=== PATIENT | male | born 1950 | race African-American/Black ===

== ENCOUNTER 2024-02-22 22:25 | Inpatient (IN) | payer MEDICARE, OTHER ==
[2024-02-22 23:11] LABS: Absolute Eosinophils 0.1 K/uL (0-0.5); Absolute Lymphocytes (CBC) 0.8 K/uL (0.7-4.9); Absolute Monocytes 2.1 K/uL (0.1-1.3); Absolute Neutrophil 4.3 K/uL (1.8-8.0); Basophils % 0.2 % (0-1.3); Eosinophils % 0.9 % (0-4.4); Hematocrit 37.8 % (39.6-49.0); Hemoglobin 12.6 g/dL (13.6-17.9); Lymphocytes % 10.4 % (15.3-44.8); MCH 30.5 pg (27.0-35.0); MCHC 33.5 g/dL (32.0-36.0); MPV 7.5 fL (7.6-11.3); Neutrophils % 59.5 % (41.7-73.7); Nucleated Red Blood Cells % 0.2 % (0-0); Platelets 346 thou/uL (152-406); RBC Red Blood Cell Count 4.15 M/uL (4.33-5.43); Red Cell Distribution Width 13.7 % (12.1-15.2)
[2024-02-22] MEDS ORDERED: VANCOMYCIN 1 GM/VIAL ONE (23:11)
[2024-02-22] MEDS ORDERED: ONDANSETRON 4 MG/2 ML VIAL ONE (23:11)
[2024-02-22] MEDS ORDERED: NA CHLORIDE 0.9% 100 ML ONE (23:12)
[2024-02-22] MEDS ORDERED: ACETAMINOPHEN 500 MG TAB ONE (23:12)
[2024-02-22] MEDS ORDERED: NA CHLORIDE 0.9% 500 ML ONE (23:12)
[2024-02-22] MEDS ORDERED: NA CHLORIDE 0.9% 2,000 ML ONE (23:12)
[2024-02-22] MEDS ORDERED: PIPERACIL/TAZO 3.375 GM VIAL IV ONE (23:13)
[2024-02-22 23:14] LABS: PTT, Activated Partial Thromb 31.1 SECONDS (24.3-36.9); Protime INR 1.47
[2024-02-22 23:19] LABS: Arterial Blood Carboxyhemoglob 0.7 % (0-1.5); Blood Gas Oxyhemoglobin 94.5 % (94-97); Blood Gas THB 13.9 g/dl (12-18); Blood O2 Saturation 96.8 % (92-98.5)
[2024-02-22 23:27] LABS: SARS-CoV-2 Antigen CONTROL BLUE LINE VIS/BG OK; SARS-CoV-2 Antigen Rapid Res Negative (Negative)
[2024-02-22 23:29] LABS: Albumin 2.7 g/dL (3.4-5.0); Albumin/Globulin Ratio 0.6 (1.1-1.8); Anion Gap 8.2 mEq/L (5.0-15.0); Bilirubin Total 0.5 mg/dL (0.2-1.0); Globulin 4.7 g/dL (2.3-3.5); Protein, Total 7.4 g/dL (6.4-8.2)
[2024-02-22 23:30] LABS: Potassium 4.2 mEq/L (3.5-5.1)
[2024-02-22 23:56] LABS: Barbiturates NEGATIVE (NEGATIVE); Benzodiazepines NEGATIVE (NEGATIVE); Cocaine NEGATIVE (NEGATIVE); METHAMPHETAM NEGATIVE (NEGATIVE); Methadone NEGATIVE (NEGATIVE); Opiates NEGATIVE (NEGATIVE); Phencyclidine NEGATIVE (NEGATIVE); THC Cannibis NEGATIVE (NEGATIVE)
[2024-02-22 23:58] LABS: Specific Gravity 1.024 (1.005-1.030); Sqamous Epithelial <5 /HPF (None Seen); Urine Bacteria >50 /HPF (<20); Urine Bilirubin NEGATIVE (Negative); Urine Blood 1+ (Negative); Urine Clarity Extremely Turbid (Clear); Urine Color Yellow (Yellow); Urine Culture Reflex Order REFLEXED; Urine Glucose NEGATIVE (Negative); Urine Ketones NEGATIVE (Negative); Urine Microscopic Reflex YN ORDER UMIC; Urine Mucus 4+ /HPF (None Seen); Urine Nitrite 1+ (Negative); Urine Protein 2+ (Negative); Urine RBC None Seen /HPF (None Seen); Urine Urobilinogen 1+ (Normal); Urine WBC >50 /HPF (<5); Urine pH 5.5 (5.0-7.0)
[2024-02-23 00:10] LABS: Band Neutrophils 6 % (0-1); Differential Total Cells Count 100; Eosinophils 1 % (0-3); Lymphocytes 5 % (15-42); Monocytes 15 % (0-10); Reactive Lymphocytes 7 %; Segmented Neutrophils 65 % (40-80)
[2024-02-23 00:11] LABS: Blood Morphology Comment NOT SEEN (NOT SEEN); Platelet Estimate ADEQ
--- NOTE | 2024-02-23 03:10 | P.HP ---
Certification for Inpatient Patient admitted to: Inpatient With expected LOS: <2 Midnights Practitioner: I am a practitioner with admitting privileges, knowledge of patient current condition, hospital course, and medical plan of care. Services: Services provided to patient in accordance with Admission requirements found in Title 42 Section 412.3 of the Code of Federal Regulations Patient History Date of Service: 02/23/24 Reason for admission: Pyelonephritis, acute renal failure History of Present Illness: 73 yrs old Black Male past medical history of dementia, hypertension, benign prostatic hypertrophy, presents to ER via Unassigned with complaints of fever and AMS . Son was at bedside during ER evaluation with the ER staff. Son reported confusion at home today associated with fever and generalized weakness. Temperature measured by EMS 101.5. Patient on arrival not able to provide any significant ROS or HPI. It was reported by the family the patient has been feeling unwell for the last 2 days with reported progressive confusion. ER course or IV fluids, IV antibiotics, with nephrology to consult. ER course UA positive leukoesterase greater than 250, 1+ hematuria, 1+ bacteria, microcytic anemia 12.6 37.8,BUN 27 creatinine 2.8 estimated GFR 28 glucose 122,plan to admit admitted to inpatient sepsis without shock, acute renal failure, marj lonephritis, metabolic encephalopathy, elevated CO2 with nephrology to consult. Allergies No Known Allergies Allergy (Unverified 10/17/17 04:18) - Past Medical/Surgical History Diabetic: No -: BPH -: Hypertension -: Renal carcinoma -: Dementia -: Nephrectomy - Social History Smoking Status: Smoker current status UNK Alcohol use: No CD- Drugs: No Caffeine use: No Place of Residence: Home Review of Systems Per HPI Physical Examination - Physical Exam General: Alert, In no apparent distress, Oriented x2, Confused HEENT: Atraumatic, Normocephalic Neck: Supple, 2+ carotid pulse no bruit Respiratory: Clear to auscultation bilaterally, Normal air movement Cardiovascular: No edema, Normal pulses Capillary refill: <2 Seconds Gastrointestinal: Normal bowel sounds, Soft and benign Musculoskeletal: No clubbing, No swelling Integumentary: No rashes, No breakdown Neurological: Normal tone, Cranial nerves 3-12 intact, Normal affect, Dementia Urinary: Other (Foul smelling urine) - Studies Laboratory Data (last 24 hrs) 02/22/24 02/22/24 02/22/24 22:48 22:48 22:48 WBC 7.30 Hgb 12.6 L Hct 37.8 L Plt Count 346 PT 16.0 H INR 1.47 APTT 31.1 Sodium 137 Potassium 4.2 BUN 27 H Creatinine 2.38 H Glucose 122 H Total Bilirubin 0.5 AST 22 ALT 30 Alkaline Phosphatase 37 L Microbiology Data (last 24 hrs): 02/22/24 22:50 Nasopharnyx Influenza Type A Antigen Screen - Final 02/22/24 22:50 Nasopharnyx Influenza Type B Antigen Screen - Final Assessment and Plan - Plan Assessment plan Acute pyelonephritis Sepsis without shock, IV fluids, IV antibiotics, Urine culture, blood cultures, CT of the abdomen pelvis bladder wall thickening may be due to cystitis, relatively expiratory lung volumes favoring segmental atelectasis, no focal consolidations, prostatomegaly, Acute renal failure History of right nephrectomy Nephrology consult, Trend kidney function, avoid nephrotoxic medication Dementia Essential hypertension BPH resume appropriate home meds Fall precaution Full code DVT heparin Diet renal Disposition per hospital course - Advance Directives Does patient have a Living Will: No Does patient have a Durable POA for Healthcare: No Time Spent Managing Pts Care (In Minutes): 55
[2024-02-23] MEDS ORDERED: ONDANSETRON 4 MG/2 ML VIAL IV PRN (03:15)
--- NOTE | 2024-02-23 03:41 | ER ---
Nurse's Notes [facility] Name: Joselo Loredo Age: 73 yrs Sex: Male : 1950 Arrival Date: 02/22/2024 Time: 22:25 Bed 4 Private MD: Diagnosis: Pyelonephritis acute;Acute renal failure, acute delirium, acute pyelonephritis;Other specified sepsis Presentation: 02/21 22:44 Chief complaint: EMS states: Family found him altered, smelling of urine. vc1 22:45 Coronavirus screen: Client denies travel out of the [place] in the last 14 days. fever, vc1 Client presents with at least one sign or symptom that may indicate coronavirus-19. Ebola Screen: Patient negative for fever greater than or equal to 101.5 degrees Fahrenheit, and additional compatible Ebola Virus Disease symptoms Patient denies exposure to infectious person. Patient denies travel to an Ebola-affected area in the 21 days before illness onset. No symptoms or risks identified at this time. Initial Sepsis Screen: Does the patient meet any 2 criteria? RR > 20 per min. Altered Mental Status. HR > 90 bpm. Yes Does the patient have a suspected source of infection? No. Patient's initial sepsis screen is negative. Risk Assessment: Do you want to hurt yourself or someone else? Patient reports no desire to harm self or others. Onset of symptoms was February 22, 2024. 22:45 Method Of Arrival: EMS: [facility] vc1 22:45 Acuity: RANDA 3 vc1 22:53 Care prior to arrival: Medication(s) given: normal Saline 300 cc IV initiated. in the vc1 left antecubital area, 16G Oxygen administered. via nasal cannula. Activity prior to arrival: None. Mechanism of Injury: No Mechanism of Injury. Transition of care: patient was not received from another setting of care. Triage Assessment: 22:50 General: Appears in no apparent distress. comfortable, obese, unkempt, Behavior is vc1 cooperative, flat. General: Smells of urine. Pain: Denies pain. EENT: No deficits noted. No signs and/or symptoms were reported regarding the EENT system. Neuro: Level of Consciousness is awake, obeys commands, lethargic, Oriented to person, place. Cardiovascular: Heart tones S1 S2 Capillary refill < 3 seconds Rhythm is sinus rhythm. Respiratory: Airway is patent Trachea midline Respiratory effort is even, unlabored, Respiratory pattern is regular, Breath sounds are clear bilaterally. Denies cough, shortness of breath. GI: Abdomen is round non-distended, Bowel sounds present X 4 quads. Abd is soft and non tender X 4 quads. : No deficits noted. No signs and/or symptoms were reported regarding the genitourinary system. Derm: Skin is intact, Skin is dry, Skin is normal, Skin temperature is hot. Musculoskeletal: No deficits noted. No signs and/or symptoms reported regarding the musculoskeletal system. Historical: - Allergies: 22:47 No Known Allergies; vc1 - Home Meds: 22:47 Flomax Oral [Active]; donepezil oral [Active]; memantine oral [Active]; losartan oral vc1 [Active]; amlodipine oral [Active]; finasteride oral [Active]; solifenacin oral [Active]; - PMHx: 22:47 Hypertension; Early onset Dementia (Hypertension); Swollen Prostate (Hypertension); vc1 - PSHx: 22:47 None; vc1 - Immunization history:: Client reports having NOT received the Covid vaccine. Flu vaccine is not up to date. - Infectious Disease History:: Denies. - Family history:: not pertinent. - Social history:: Smoking status: Patient denies any tobacco usage or history of. Screenin:[address] [facility] ED Fall Risk Assessment (Adult) History of falling in the last 3 months, vc1 including since admission No falls in past 3 months (0 pts) Confusion or Disorientation Yes (5 pts) Intoxicated or Sedated No (0 pts) Impaired Gait No (0 pts) Mobility Assist Device Used No (0 pt) Altered Elimination Yes (1 pt) Score/Fall Risk Level 3 or more points = High Risk Oriented to surroundings, Maintained a safe environment, Educated pt \T\ family on fall prevention, incl call for assistance when getting out of bed. Abuse screen: Denies threats or abuse. Nutritional screening: No deficits noted. Tuberculosis screening: No symptoms or risk factors identified. Assessment: 02/22 01:18 Reassessment: Patient appears in no apparent distress at this time. Patient and/or bm8 family updated on plan of care and expected duration. Pain level reassessed. Patient is alert, oriented x 3, equal unlabored respirations, skin warm/dry/pink. Patient denies pain at this time. Patient states feeling better. Patient states symptoms have improved. Neuro: No deficits noted. Level of Consciousness is awake, alert, obeys commands, Oriented to person, place, time, situation, [employer] are equal bilaterally Moves all extremities. Full function Speech is normal, Facial symmetry appears normal, Denies weakness numbness headache. Cardiovascular: Denies chest pain, lightheadedness, shortness of breath, Heart tones S1 S2 present Capillary refill < 3 seconds Patient's skin is warm and dry. Rhythm is sinus rhythm. Respiratory: No deficits noted. Airway is patent Trachea midline Respiratory effort is even, unlabored, Respiratory pattern is regular, symmetrical, Breath sounds are clear bilaterally. the patient has mild shortness of breath. GI: No deficits noted. No signs and/or symptoms were reported involving the gastrointestinal system. : No deficits noted. No signs and/or symptoms were reported regarding the genitourinary system. EENT: No deficits noted. No signs and/or symptoms were reported regarding the EENT system. Derm: No deficits noted. No signs and/or symptoms reported regarding the dermatologic system. Musculoskeletal: No deficits noted. No signs and/or symptoms reported regarding the musculoskeletal system. 04:53 Reassessment: Patient appears in no apparent distress at this time. No changes from bm8 previously documented assessment. Patient and/or family updated on plan of care and expected duration. Pain level reassessed. Patient is alert, oriented x 3, equal unlabored respirations, skin warm/dry/pink. Patient denies pain at this time. Patient states feeling better. Patient states symptoms have improved. Vital Signs: 02/21 22:45 BP 151 / 96; Pulse 98; Resp 22; Temp 100.6(A); Pulse Ox 93% on R/A; Weight 107.05 kg; vc1 Height 5 ft. 10 in. ; Pain 0/10; 02/22 01:18 BP 146 / 83; Pulse 84; Resp 19; Temp 98.7; Pulse Ox 93% on 2 lpm NC; Pain 0/10; bm8 04:53 BP 158 / 89; Pulse 88; Resp 17; Temp 99; Pulse Ox 99% on 2 lpm NC; Pain 0/10; bm8 02/21 22:45 Body Mass Index 33.86 (107.05 kg, 177.8 cm) vc1 02/21 22:45 Pain Scale: Adult vc1 02/22 01:18 Pain Scale: Adult bm8 04:53 Pain Scale: Adult bm8 García Coma Score: 02/21 22:36 Eye Response: spontaneous(4). Motor Response: obeys commands(6). Verbal Response: sp4 confused(4). Total: 14. 02/22 01:18 Eye Response: spontaneous(4). Motor Response: obeys commands(6). Verbal Response: bm8 oriented(5). Total: 15. 04:53 Eye Response: spontaneous(4). Motor Response: obeys commands(6). Verbal Response: bm8 oriented(5). Total: 15. ED Course: 02/21 22:29 Patient arrived in ED. rv1 22:31 Keny Infante MD is Attending Physician. sp4 22:45 Inserted saline lock: 20 gauge in right upper arm, using aseptic technique. Blood ty collected. 22:46 Triage completed. vc1 22:46 Roberto Carlos Masters, RN is Primary Nurse. bm8 22:47 Initial lab(s) drawn, by me, sent to lab. First set of blood cultures drawn by me. ty 22:50 Arm band placed on right wrist. vc1 22:52 Patient has correct armband on for positive identification. Placed in gown. Bed in low vc1 position. Call light in reach. Side rails up X2. monitoring manager on. Pulse ox on. NIBP on. 22:54 Maintain EMS IV. Dressing intact. Good blood return noted. Site clean \T\ dry. Gauge \T\ vc 1 site: 16G LAC. 23:01 Chest Single View XRAY In Process Unspecified. EDMS 23:05 Second set of blood cultures drawn by me. ty 23:05 Mckeon cath inserted, using sterile technique, 18 Fr., by me, balloon inflated, to bm8 gravity drainage, urine specimen collected. 02/22 00:00 Urine collected: Mckeon catheter specimen, clear, Amount Returned: 100mL. ty 00:33 CT Head Brain wo Cont In Process Unspecified. EDMS 00:33 Chest Abd Pelvis Wo Con In Process Unspecified. EDMS 01:18 No provider procedures requiring assistance completed. bm8 03:40 Len Wiley MD is Hospitalizing Provider. sp4 04:53 Provided Education on: NEED FOR ADMIT. bm8 04:53 Patient admitted, IV remains in place. bm8 Administered Medications: 02/21 23:36 Drug: Acetaminophen PO 1000 mg PO once Route: PO; bm8 02/22 01:29 Follow up: Response: No adverse reaction bm8 02/21 23:36 Drug: NS 0.9% IV (30 ml/kg) 30 ml/kg IV at bolus once; Sepsis Protocol Route: IV; Rate: bm8 bolus; Site: right antecubital; 02/22 01:29 Follow up: Response: No adverse reaction; IV Status: Completed infusion; IV Intake: bm8 3000ml 02/21 23:36 Drug: vancoMYCIN IVPB 2 grams IVPB at calculated rate once Route: IVPB; Rate: bm8 calculated rate; Site: right antecubital; 02/22 04:55 Follow up: Response: No adverse reaction; IV Status: Completed infusion; IV Intake: bm8 500ml 02/21 23:36 Drug: Piperacillin-Tazobactam IVPB 3.375 grams IVPB once over 60 mins; (mix in NS 100 bm8 mL) Route: IVPB; Infused Over: 60 mins; Site: left antecubital; 02/22 04:55 Follow up: Response: No adverse reaction; IV Status: Completed infusion; IV Intake: bm8 100ml 02/21 23:36 Drug: Ondansetron IVP 4 mg IVP once; over 2 minutes Route: IVP; Site: left antecubital; bm8 02/22 00:38 Follow up: Response: No adverse reaction bm8 Medication: 02/21 22:52 VIS not applicable for this client. vc1 Intake: 02/22 01:29 IV: 3000ml; Total: 3000ml. bm8 04:55 IV: 100ml; Total: 3100ml. bm8 04:55 IV: 500ml; Total: 3600ml. bm8 Outcome: 03:41 Decision to Hospitalize by Provider. sp4 04:53 Admitted to ER Hold. Please see [facility] for further documentation. bm8 04:53 Condition: stable 04:53 Instructed on the need for admit, Demonstrated understanding of instructions, follow-up care, 16:28 Patient left the ED. iw Signatures: Dispatcher [employer] Connie Shannon, RN RN iw Kathy Linares RN RN vc1 Mike, Elizabeth rv1 Keny Infante MD MD sp4 Jaime Mondragon Brad RN RN bm8 Corrections: (The following items were deleted from the chart) 02/21 23:59 23:57 Inserted saline lock: 20 gauge in right upper arm, using aseptic technique. Blood ty collected. ty 02/22 01:29 01:18 Mckeon cath inserted, using sterile technique, 18 Fr., by nh, balloon inflated, to bm8 gravity drainage, urine specimen collected. bm8
--- NOTE | 2024-02-23 03:41 | EDPHYS ---
Physician Documentation [facility] Name: Joselo Loredo Age: 73 yrs Sex: Male : 1950 Arrival Date: 02/22/2024 Time: 22:25 Bed 4 Private MD: ED Physician Keny Infante HPI: 02/21 22:35 This 73 yrs old Black Male presents to ER via Unassigned with complaints of fever and sp4 AMS . 22:35 73-year-old male with history of BPH and hypertension presents with EMS for worsening sp4 confusion at home today associated with fever and generalized weakness. Temperature measured by EMS 101.5. Patient on arrival not able to provide any significant ROS or HPI. It was reported by the family the patient has been feeling unwell throughout the day and became confused.. 02/22 01:29 Patient's family report he has not been feeling well for the past 2 days.. sp4 Historical: - Allergies: 02/21 22:47 No Known Allergies; vc1 - Home Meds: 22:47 Flomax Oral [Active]; donepezil oral [Active]; memantine oral [Active]; losartan oral vc1 [Active]; amlodipine oral [Active]; finasteride oral [Active]; solifenacin oral [Active]; - PMHx: 22:47 Hypertension; Early onset Dementia (Hypertension); Swollen Prostate (Hypertension); vc1 - PSHx: 22:47 None; vc1 - Immunization history:: Client reports having NOT received the Covid vaccine. Flu vaccine is not up to date. - Infectious Disease History:: Denies. - Family history:: not pertinent. - Social history:: Smoking status: Patient denies any tobacco usage or history of. ROS: 02/22 01:29 Constitutional: Negative for chills, and weight loss, positive for confusion fever and sp4 generalized weakness All other systems are negative, Exam: 02/21 22:36 Constitutional: This is a well developed, well nourished patient who is awake, alert, sp4 and in no acute distress. Head/Face: Normocephalic, atraumatic. Eyes: Pupils equal round and reactive to light, extra-ocular motions intact. Lids and lashes normal. Conjunctiva and sclera are not injected. Cornea within normal limits. Periorbital areas with no swelling, redness, or edema. ENT: Nares patent. No nasal discharge, no septal abnormalities noted. Tympanic membranes are normal and external auditory canals are clear. Oropharynx with no redness, swelling, or masses, exudates, or evidence of obstruction, uvula midline. Mucous membranes moist. Neck: Trachea midline, no thyromegaly or masses palpated, and no cervical lymphadenopathy. Supple, full range of motion without nuchal rigidity, or vertebral point tenderness. Chest/axilla: Normal chest wall appearance and motion. Nontender with no deformity. No lesions are appreciated. Cardiovascular: Regular rate and rhythm with a normal S1 and S2. No gallops, murmurs, or rubs. Normal PMI, no JVD. No pulse deficits. Respiratory: Lungs have equal breath sounds bilaterally, clear to auscultation and percussion. No rales, rhonchi or wheezes noted. No increased work of breathing, no retractions or nasal flaring. Abdomen/GI: Soft, with normal bowel sounds. No distension or tympany. No guarding or rebound. No evidence of tenderness throughout. Back: No spinal tenderness. No costovertebral tenderness. Male : Normal genitalia with no discharge or lesions. Skin: Warm, dry with normal turgor. Normal color with no rashes, no lesions, and no evidence of cellulitis. MS/ Extremity: Pulses equal, no cyanosis. Neurovascular intact. Full, normal range of motion. Neuro: Awake and alert, GCS 15, oriented to person, only Cranial nerves II-XII grossly intact. Motor strength 5/5 in all extremities. Sensory grossly intact. ECG was reviewed by the Attending Physician. EKG at 2231 normal sinus rhythm normal EKG rate 96 Vital Signs: 22:45 BP 151 / 96; Pulse 98; Resp 22; Temp 100.6(A); Pulse Ox 93% on R/A; Weight 107.05 kg; vc1 Height 5 ft. 10 in. ; Pain 0/10; 02/22 01:18 BP 146 / 83; Pulse 84; Resp 19; Temp 98.7; Pulse Ox 93% on 2 lpm NC; Pain 0/10; bm8 04:53 BP 158 / 89; Pulse 88; Resp 17; Temp 99; Pulse Ox 99% on 2 lpm NC; Pain 0/10; bm8 02/21 22:45 Body Mass Index 33.86 (107.05 kg, 177.8 cm) vc1 02/21 22:45 Pain Scale: Adult vc1 02/22 01:18 Pain Scale: Adult bm8 04:53 Pain Scale: Adult bm8 García Coma Score: 02/21 22:36 Eye Response: spontaneous(4). Motor Response: obeys commands(6). Verbal Response: sp4 confused(4). Total: 14. 02/22 01:18 Eye Response: spontaneous(4). Motor Response: obeys commands(6). Verbal Response: bm8 oriented(5). Total: 15. 04:53 Eye Response: spontaneous(4). Motor Response: obeys commands(6). Verbal Response: bm8 oriented(5). Total: 15. MDM: 02/21 22:35 Patient medically screened. sp4 02/22 01:22 ED course: PROCEDURE: XR Chest, 1 View CLINICAL INDICATION: The patient is 73 years old sp4 and is Male; CHEST PAIN Bed Name: 4 TECHNIQUE: Frontal view of the chest. COMPARISON: None FINDINGS: LUNGS: Right hemidiaphragm elevation with medial bibasilar airspace opacities, favoring atelectasis. No other focal consolidation. PLEURAL SPACE: Blunting of the left costophrenic angle, suggesting pleural thickening versus effusion. No appreciable pneumothorax. MEDIASTINUM: Prominence of the cardiomediastinal silhouette, likely exaggerated secondary to portable technique, lordotic positioning, and patient body habitus. BONES/JOINTS: Degenerative changes of bilateral shoulders. VASCULATURE: Calcified atherosclerosis of the thoracic aorta. IMPRESSION: 1. Right hemidiaphragm elevation with medial bibasilar airspace opacities, favoring atelectasis. No other focal consolidation. 2. Blunting of the left costophrenic angle, suggesting pleural thickening versus effusion. Electronically signed by: Suresh Sebastian MD 02/22/2024 11:38 PM . 01:30 Differential Diagnosis altered mental status, sepsis, flu, Pyelonephritis . Data sp4 reviewed: vital signs, nurses notes, EMS record, old medical records, lab test result(s), EKG, radiologic studies, CT scan, plain films. Consideration of Admission/Observation Patient was admitted/placed on observation. Escalation of care including admission/observation considered. Management of patient was discussed with the following: Hospitalist: Admission team. . ED course: CT - FINDINGS: No acute intracranial hemorrhage identified. No mass, mass effect, shift of the midline, abnormal extra-axial fluid collection or CT evidence of acute ischemic change identified. The ventricular system and sulcal spaces are mildly enlarged compatible with mild cerebral atrophy. Confluent areas of hypodensity throughout the supratentorial white matter are nonspecific and may be related to chronic small vessel ischemic change. Focal encephalomalacia in the right basal ganglia compatible with remote lacunar type infarction. The visualized paranasal sinuses and the mastoids are clear. No skull fracture identified. Visualized orbits and globes are unremarkable. Atherosclerotic calcification of the intracranial internal carotid arteries. IMPRESSION: 1. No acute intracranial abnormality by CT criteria. . 04:00 ED course: CT - Abdomen - pelvis - IMPRESSION: 1. Bladder wall thickening which may be sp4 due to the decompressed state of the bladder or due to cystitis. Indwelling Mckeon catheter and bulb. 2. Relatively expiratory lung volumes bilaterally with bandlike right greater than left basilar predominant consolidations favoring subsegmental atelectasis. No additional focal consolidation. 3. Otherwise, no acute abnormality of the chest. No other acute findings in the abdomen or pelvis, allowing for lack of intravenous contrast. 4. Prostamegaly. Correlation with PSA levels recommended. 5. Additional nonacute findings as above. Electronically signed by: Suresh Sebastian MD 02/23/2024 02:53 AM CDT RP. 02/21 22:32 Order name: Blood Culture Adult (2) 02/21 22:32 Order name: CBC with Diff; Complete Time: :02/21 22:32 Order name: CMP; Complete Time: :02/21 22:32 Order name: Lactate w/ 2H reflex if indic.; Complete Time: :02/21 22:32 Order name: Protime (+inr); Complete Time: :02/21 22:32 Order name: Ptt, Activated; Complete Time: :02/21 22:32 Order name: Urinalysis w/ reflexes; Complete Time: :02/21 22:32 Order name: ABG; Complete Time: :02/21 22:32 Order name: Alcohol Level; Complete Time: 01:21 sp4 02/21 22:33 Order name: SARS RAPID; Complete Time: 01:21 sp4 02/21 22:33 Order name: Influenza Screen (a \T\ B); Complete Time: 01:21 sp4 02/21 22:33 Order name: Urine Drug Screen; Complete Time: 01:21 sp4 02/21 23:16 Order name: Manual Differential; Complete Time: 01:21 EDMS 02/22 00:01 Order name: Urine Culture EDMS 02/22 03:19 Order name: Urinalysis w/ reflexes EDMS 02/22 03:19 Order name: CBC with Automated Diff EDMS 02/22 03:19 Order name: CBC with Automated Diff; Complete Time: 06:41 EDMS 02/22 03:19 Order name: CBC with Automated Diff EDMS 02/22 03:19 Order name: Comprehensive Metabolic Panel EDMS 02/22 03:19 Order name: Comprehensive Metabolic Panel; Complete Time: 06:41 EDMS 02/22 03:19 Order name: Comprehensive Metabolic Panel EDMS 02/22 03:19 Order name: Magnesium EDMS 02/22 03:19 Order name: Magnesium; Complete Time: 06:41 EDMS 02/22 03:19 Order name: Magnesium EDMS 02/22 03:19 Order name: Phosphorus EDMS 02/22 03:19 Order name: Phosphorus; Complete Time: 06:41 EDMS 02/22 03:19 Order name: Phosphorus EDMS 02/21 22:32 Order name: Chest Single View XRAY sp4 02/21 22:36 Order name: CT Head Brain wo Cont sp4 02/22 00:33 Order name: Chest Abd Pelvis Wo Con EDMS 02/21 22:32 Order name: EKG; Complete Time: 22:32 sp4 02/21 22:32 Order name: Accucheck; Complete Time: 23:37 sp4 02/21 22:32 Order name: Cardiac monitoring; Complete Time: 23:37 sp4 02/21 22:32 Order name: Cath; Complete Time: 23:37 sp4 02/21 22:32 Order name: EKG - Nurse/Tech; Complete Time: 23:00 sp4 02/21 22:32 Order name: IV Saline Lock - Large Bore; Complete Time: 23:00 sp4 05/21 22:32 Order name: Labs collected and sent; Complete Time: 23:00 sp4 02/21 22:32 Order name: O2 Per Protocol; Complete Time: 23:00 sp4 02/21 22: Order name: O2 Sat Monitoring; Complete Time: 23:00 sp4 02/21 22:32 Order name: Vital Signs; Complete Time: 23:00 sp4 EC02/21 22:36 Rate is 96 beats/min. Rhythm is regular, Normal Sinus Rhythm. QRS Copen is Normal. [place] sp4 interval is normal. QRS interval is normal. QT interval is normal. No Q waves. T waves are Normal. No ST changes noted. Clinical impression: Normal ECG. Interpreted by me. Reviewed by me. Administered Medications: 23:36 Drug: Acetaminophen PO 1000 mg PO once Route: PO; 8 02/22 01:29 Follow up: Response: No adverse reaction [facility] 02/21 23:36 Drug: NS 0.9% IV (30 ml/kg) 30 ml/kg IV at bolus once; Sepsis Protocol Route: IV; Rate: bm8 bolus; Site: right antecubital; 02/22 01:29 Follow up: Response: No adverse reaction; IV Status: Completed infusion; IV Intake: bm8 3000ml 02/21 23:36 Drug: vancoMYCIN IVPB 2 grams IVPB at calculated rate once Route: IVPB; Rate: bm8 calculated rate; Site: right antecubital; 02/22 04:55 Follow up: Response: No adverse reaction; IV Status: Completed infusion; IV Intake: bm8 500ml 02/21 23:36 Drug: Piperacillin-Tazobactam IVPB 3.375 grams IVPB once over 60 mins; (mix in NS 100 bm8 mL) Route: IVPB; Infused Over: 60 mins; Site: left antecubital; 02/22 04:55 Follow up: Response: No adverse reaction; IV Status: Completed infusion; IV Intake: bm8 100ml 02/21 23:36 Drug: Ondansetron IVP 4 mg IVP once; over 2 minutes Route: IVP; Site: left antecubital; bm8 02/22 00:38 Follow up: Response: No adverse reaction bm8 Disposition Summary: 02/23/24 03:41 Hospitalization Ordered Notes: Hospitalization Status: Inpatient Admission sp4 Provider: Len Wiley sp4 Condition: Stable sp4 Problem: new sp4 Symptoms: have improved sp4 Bed/Room Type: Standard sp4 Location: Telemetry/MedSurg (Inpatient)(02/23/24 15:42) [facility] Room Assignment: 216(02/23/24 15:42) romario Diagnosis - Pyelonephritis acute sp4 - Acute renal failure, acute delirium, acute pyelonephritis sp4 - Other specified sepsis sp4 Forms: - Medication Reconciliation Form sp4 - SBAR form sp4 - Leadership Thank You Letter sp4 Signatures: Dispatcher [employer] EDMS Cricket Wiley MD MD rn Bhavesh Menard, RN RN ja1 Kathy Linares, RN RN vc1 Elizabeth Mckeon rv1 Keny Infante MD MD sp4 Roberto Carlos Masters, RN RN bm8 Corrections: (The following items were deleted from the chart) 02/21 22:32 22:32 ETHANOL+C.LAB.BRZ ordered. EDMS EDMS 22:33 22:33 URINE DRUG SCREEN+UC.LAB.BRZ ordered. EDMS EDMS 02/22 00:33 02/21 22:34 Chest Abdomen Pelvis W Con+CT.RAD.BRZ ordered. EDMS EDMS 02/22 03:49 03:41 Telemetry/MedSurg (Inpatient) sp4 rv1 03:49 03:41 sp4 rv1 15:42 03:49 [facility] ER HOLD rv1 ja1 15:42 03:49 ERHOLD- rv1 ja1
[2024-02-23 05:16] VITALS: BMI 33.7
[2024-02-23 05:29] LABS: Absolute Eosinophils 0.1 K/uL (0-0.5); Absolute Lymphocytes (CBC) 0.7 K/uL (0.7-4.9); Absolute Monocytes 0.7 K/uL (0.1-1.3); Absolute Neutrophil 4.5 K/uL (1.8-8.0); Basophils % 0.3 % (0-1.3); Eosinophils % 0.9 % (0-4.4); Hematocrit 38.5 % (39.6-49.0); Hemoglobin 12.8 g/dL (13.6-17.9); MCH 30.5 pg (27.0-35.0); MCHC 33.2 g/dL (32.0-36.0); MCV 91.8 fL (80-100); MPV 7.5 fL (7.6-11.3); Monocytes % 12.3 % (3.3-12.3); Neutrophils % 75.5 % (41.7-73.7); Nucleated Red Blood Cells % 0.1 % (0-0); Platelets 331 thou/uL (152-406); RBC Red Blood Cell Count 4.19 M/uL (4.33-5.43); Red Cell Distribution Width 13.9 % (12.1-15.2)
[2024-02-23 06:24] LABS: Potassium 4.2 mEq/L (3.5-5.1)
[2024-02-23 06:25] LABS: Albumin 2.5 g/dL (3.4-5.0); Albumin/Globulin Ratio 0.6 (1.1-1.8); Anion Gap 7.2 mEq/L (5.0-15.0); Bilirubin Total 0.6 mg/dL (0.2-1.0); Globulin 4.5 g/dL (2.3-3.5); Magnesium 2.4; Phosphorus 2.9 mg/dL (2.5-4.9)
[2024-02-23] MEDS: Ringers Lactate 1,000 ML IV SCH (07:00)
[2024-02-23] MEDS ORDERED: Ringers Lactate 1,000 ML IV ONE (07:48)
--- NOTE | 2024-02-23 08:28 | P.PN ---
Date of Service: 02/23/24 Subjective: patient seen this morning, feels slight improvement reports symptoms came on in last ~1-2 days had some difficulty urinating in last day minor placed in ED ROS: 10 point ROS as noted above, otherwise negative Physical Exam: GEN: Alert, orientedx3, NAD, slight confusion HEENT: Normal conjunctiva, sclera anicteric CV: Regular rate and rhythm, no edema Pulm: Nonlabored respirations on 2L NC, clear bilaterally ABD: Soft, nontender, nondistended Neuro: Normal speech, normal affect Minor in place vitals reviewed Problem List: Sepsis secondary to Acute pyelonephritis with acute delirium ZO hx of right nephrectomy Hypertension BPH Dementia Sepsis secondary to Acute pyelonephritis with acute delirium Reports fever, confusion, generalized weakness at home ~2 days prior to hospitalization. EMS noted 101.5 fever prior to arrival CT abdomen (02/21): bladder wall thickening may be due to cystitis. Indwelling minor catheter and bulb. subsegmental atelectasis, prostatomegaly, colonic diverticulosis urinalysis in ED with +LE, +WBC, +bacteria Continue empiric zosyn (02/22-) follow blood and urine cultures continue IV fluids PRN antiemetics ZO hx of right nephrectomy Nephrology consulted continue to monitor renal function Creatinine 2.38 -> 2.11 (02/22) continue IVF suspect prerenal, and possibly component of urinary retention Hypertension BPH Dementia confirm home meds, restart as appropriate VTE: lovenox Code: Full Dispo: Home, ~2 days Pending culture results / afebrile > 24 hours improved mentation
[2024-02-23] MEDS: PIPER TAZO 3.375 GM in NA CHLORIDE 0.9% 100 ML IV SCH (09:00)
[2024-02-23] MEDS ORDERED: NA CHLORIDE 0.9% 100 ML ONE (09:28)
[2024-02-23] MEDS ORDERED: PIPERACIL/TAZO 3.375 GM VIAL IV ONE (09:29)
[2024-02-23] MEDS: PNEUMOCOCCAL VACCINE 0.5 ML IMVAC ONE (10:00)
--- NOTE | 2024-02-23 12:21 | RAD REPORT ---
EXAM DESCRIPTION: RAD - Chest Single View - 02/22/2024 11:00 pm XR Chest, 1 View CLINICAL HISTORY: The patient is 73 years old and is Male; CHEST PAIN Bed Name: 4 TECHNIQUE: Frontal view of the chest. COMPARISON: None FINDINGS: LUNGS: Right hemidiaphragm elevation with medial bibasilar airspace opacities, favoring atelectasis. No other focal consolidation. PLEURAL SPACE: Blunting of the left costophrenic angle, suggesting pleural thickening versus effusi on. No appreciable pneumothorax. MEDIASTINUM: Prominence of the cardiomediastinal silhouette, likely exaggerated secondary to portab le technique, lordotic positioning, and patient body habitus. BONES/JOINTS: Degenerative changes of bilateral shoulders. VASCULATURE: Calcified atherosclerosis of the thoracic aorta. IMPRESSION: 1. Right hemidiaphragm elevation with medial bibasilar airspace opacities, favoring at electasis. No other focal consolidation. 2. Blunting of the left costophrenic angle, suggesting pleural thickening versus effusion. Electronically signed by: Suresh Sebastian MD 02/22/2024 11:38 PM CDT Due to temporary technical issues with the PACS/Fluency reporting system, reports are being signed by the in house radiologists without review as a courtesy to insure prompt reporting. The interpreting radiologist is fully responsible for the content of the report.
[2024-02-23] MEDS: carvediloL 12.5 MG TAB PO SCH (13:00)
[2024-02-23] MEDS: NA CHLORIDE 0.9% 1,000 ML IV SCH (13:00)
[2024-02-23] MEDS: AMLODIPINE 10 MG TAB PO SCH (13:00)
--- NOTE | 2024-02-23 13:48 | RAD REPORT ---
EXAM DESCRIPTION: CT - Head Brain Wo Cont - 02/23/2024 6:36 am CLINICAL HISTORY: CONFUSED COMPARISON: 06/08/2023 TECHNIQUE: Axial CT of the head obtained from the skull apex to the skull base without contrast. Thi s exam was performed according to our departmental dose-optimization program, which includes automate d exposure control, adjustment of the mA and/or kV according to patient size and/or use of iterative reconstruction technique. FINDINGS: No acute intracranial hemorrhage identified. No mass, mass effect, shift of the midline, a bnormal extra-axial fluid collection or CT evidence of acute ischemic change identified. The ventricu lar system and sulcal spaces are mildly enlarged compatible with mild cerebral atrophy. Confluent a reas of hypodensity throughout the supratentorial white matter are nonspecific and may be related to chronic small vessel ischemic change. Focal encephalomalacia in the right basal ganglia compatible wi th remote lacunar type infarction. The visualized paranasal sinuses and the mastoids are clear. No skull fracture identified. Visualiz ed orbits and globes are unremarkable. Atherosclerotic calcification of the intracranial internal car otid arteries. IMPRESSION: 1. No acute intracranial abnormality by CT criteria. Electronically signed by: Krystian Lake DO 02/23/2024 01:21 AM CDT RP [id number] Due to temporary technical issues with the PACS/Fluency reporting system, reports are being signed by the in house radiologists without review as a courtesy to insure prompt reporting. The interpreting radiologist is fully responsible for the content of the report.
[2024-02-23] MEDS ORDERED: NA CHLORIDE 0.9% 1,000 ML ONE (13:51)
[2024-02-23] MEDS ORDERED: AMLODIPINE 10 MG TAB ONE (13:51)
[2024-02-23] MEDS ORDERED: carvediloL 6.25 MG TAB ONE (13:51)
[2024-02-23] MEDS ORDERED: PNEUMOCOCCAL VACCINE 0.5 ML IMVAC ONE (13:51)
--- NOTE | 2024-02-23 14:04 | RAD REPORT ---
EXAM DESCRIPTION: CT - Chest Abd Pelvis Wo Con - 02/23/2024 6:35 am CLINICAL HISTORY: The patient is 73 years old and is Male; Fever and sepsis Bed Name: 4 TECHNIQUE: Axial computed tomography images of the chest, abdomen and pelvis without intravenous con trast. Sagittal and coronal reformatted images were created and reviewed. This CT exam was perfor med using one or more of the following dose reduction techniques: automated exposure control, adjus tment of the mA and/or kV according to patient size, and/or use of iterative reconstruction technique . COMPARISON: XR Chest 02/22/2024, CT Stone Protocol 10/16/2017 FINDINGS: CHEST: LUNGS: Relatively expiratory lung volumes bilaterally with bandlike right greater than left basilar predominant consolidations favoring subsegmental atelectasis. No additional focal consolidation. Left suprahilar calcified granuloma. No mass. PLEURAL SPACE: No appreciable pleural effusion or pneumothorax. HEART: Cardiomegaly. No significant coronary artery calcifications. No significant pericardial effusion. ABDOMEN: LIVER: Unremarkable GALLBLADDER AND BILE DUCTS: Unremarkable No calcified stones. No ductal dilation. PANCREAS: Unremarkable No ductal dilation. SPLEEN: Unremarkable No splenomegaly. ADRENALS: Unremarkable No mass. KIDNEYS AND URETERS: Right-sided nephrectomy. STOMACH AND BOWEL: Colonic diverticulosis without evidence of acute diverticulitis. No evidence of small or large bowel obstruction. PELVIS: APPENDIX: No findings to suggest acute appendicitis. BLADDER: Bladder wall thickening which may be due to the decompressed state of the bladder or due t o cystitis. Urinary bladder is decompressed around the indwelling Mckeon catheter and bulb. No stones. REPRODUCTIVE: The prostate gland is enlarged. CHEST, ABDOMEN and PELVIS: INTRAPERITONEAL SPACE: Unremarkable No significant fluid collection. No free air. BONES/JOINTS: Multilevel spondylosis. DISH changes of the inferior cervical spine. No acute fracture. No dislocation. SOFT TISSUES: Mild right-sided gynecomastia. VASCULATURE: Mild ectasia of the proximal aortic arch, measuring up to 4.2 cm, without overt aneury smal dilatation. LYMPH NODES: Unremarkable No enlarged lymph nodes. OTHER FINDINGS: Right hemidiaphragm elevation. IMPRESSION: 1. Bladder wall thickening which may be due to the decompressed state of the bladder o r due to cystitis. Indwelling Mckeon catheter and bulb. 2. Relatively expiratory lung volumes bilaterally with bandlike right greater than left basilar pre dominant consolidations favoring subsegmental atelectasis. No additional focal consolidation. 3. Otherwise, no acute abnormality of the chest. No other acute findings in the abdomen or pelvis, allowing for lack of intravenous contrast. 4. Prostamegaly. Correlation with PSA levels recommended. 5. Additional nonacute findings as above. Electronically signed by: Suresh Sebastian MD 02/23/2024 02:53 AM CDT RP Due to temporary technical issues with the PACS/Fluency reporting system, reports are being signed by the in house radiologists without review as a courtesy to insure prompt reporting. The interpreting radiologist is fully responsible for The content of the report.
--- NOTE | 2024-02-23 16:12 | CON ---
Date of Consultation: 02/23/2024 Reason For Consultation: Elevated BUN and creatinine, fluid management, UTI. History Of Present Illness: This is a pleasant 73-year-old gentleman, well known to me from the office with significant past medical history of: 1. Hypertension. 2. Renal cell CA, status post right radical nephrectomy at [facility] back in January 2018. 3. Hypertension since 2004. 4. Chronic kidney disease stage 3B secondary to renal mass loss secondary to right nephrectomy superimposed with JONAH secondary to nonsteroidal use with normal sized kidney on the left 12.2 cm. Baseline creatinine as seen in the office back in November is 2.1, with GFR of 32. The patient came to the hospital. For the last few days, the patient had weakness and difficulty ambulating. Upon arrival to the hospital, the patient found to have UTI, and elevation in BUN and creatinine. For that reason, we have been consulted. Creatinine was 2.8, GFR of 28. The patient denied taking any nonsteroidal. Workup showed pyelonephritis. The patient did not have any low blood pressure. The patient did not have any IV contrast. Past Medical History: Includes: 1. Hypertension. 2. Renal cell CA, status post right nephrectomy back in January 2018. 3. Chronic kidney disease stage 3B. 4. Hyperlipidemia. 5. Benign prostate hypertrophy. 6. Dementia. Past Surgical History: Include nephrectomy. Social History: Active smoker. Denied alcohol. Denied drugs abuse. Review of Systems: Unobtainable. The patient had dementia. Physical Examination: General: When I saw the patient, patient lying in bed, comfortable. Vital Signs: Blood pressure 167/94, pulse of 99, afebrile. Chest: Clear to auscultation. Heart: S1, S2. Regular. Abdomen: Soft, nontender. Extremity: No edema. Neuro: Alert. No focality. Laboratory Data: WBC 6, hemoglobin 12.8, sodium 137, potassium 4.2, bicarb 27, BUN 27, creatinine 2.3, calcium 9.4, GFR 28. Today's lab data; sodium 139, potassium 4.2, bicarb 26, BUN 23, creatinine 2.1, GFR of 32, calcium 8.7, phosphorus 2.9, albumin 2.5. Current Medications: The patient on, include: 1. LR. 2. Zosyn. Assessment And Plan: 1. Acute kidney injury secondary to toxic ATN, poor perfusion ATN secondary to pyelonephritis, wood heel back liner to his baseline, looked to me still on the dry side. I am going to change IV fluid to normal saline and we will follow up. 2. Hypertension, not controlled. With the presence of acute kidney injury, I am going to be avoiding any SHADE inhibitor or ARB. The patient as an outpatient on losartan, amlodipine. I am going to resume the amlodipine and carvedilol. 3. Chronic kidney disease, stable with acute kidney injury as above. Chronic kidney disease secondary to JONAH and renal mass loss. 4. Pyelonephritis. Continue current antibiotic dose appropriate. I am going to follow up culture. 5. Dehydration. Continue IV hydration. Time spent examining the patient [id number], reviewing data, lab and radiology, placing order, discussing the case with the patient, discussing the case with the preanalytics team lead including hospitalist and nursing staff with the dialysis nurse more than 75 minutes MANA Voice ID: [id number] Report ID: [id number]
[2024-02-24 03:50] LABS: Absolute Eosinophils 0.3 K/uL (0-0.5); Absolute Lymphocytes (CBC) 0.9 K/uL (0.7-4.9); Basophils % 0.5 % (0-1.3); Eosinophils % 3.7 % (0-4.4); Hematocrit 39.3 % (39.6-49.0); Hemoglobin 13.1 g/dL (13.6-17.9); Lymphocytes % 11.1 % (15.3-44.8); MCH 30.6 pg (27.0-35.0); MCHC 33.4 g/dL (32.0-36.0); MCV 91.5 fL (80-100); MPV 7.9 fL (7.6-11.3); Neutrophils % 60.9 % (41.7-73.7); Platelets 346 thou/uL (152-406); RBC Red Blood Cell Count 4.29 M/uL (4.33-5.43); Red Cell Distribution Width 13.7 % (12.1-15.2)
[2024-02-24 04:01] LABS: Albumin 2.5 g/dL (3.4-5.0); Albumin/Globulin Ratio 0.5 (1.1-1.8); Bilirubin Total 0.6 mg/dL (0.2-1.0); Globulin 4.6 g/dL (2.3-3.5); Magnesium 2.1 mg/dL (1.6-2.4); Protein, Total 7.1 g/dL (6.4-8.2)
[2024-02-24 04:09] LABS: Monocytes % 23.8 % (3.3-12.3)
--- NOTE | 2024-02-24 09:02 | P.PN ---
Date of Service: 02/24/24 Subjective: Feeling a little better today mentation slowly improving, more alert/awake. Answering questions more appropriately otherwise no new / worsening problems 100.6 temp yesterday afternoon, afebrile since then. 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 EMS noted 101.5 fever prior to arrival CT abdomen (02/21): bladder wall thickening may be due to cystitis. Indwelling minor catheter and bulb. subsegmental atelectasis, prostatomegaly, colonic diverticulosis urine cx (02/21): 4+ GNR blood cx (02/21): NGTD Continue empiric zosyn (02/22-) 100.6 temp yesterday, no leukocytosis follow blood and urine cultures IVF dc'd 02/22 PRN antiemetics ZO on CKD 3B renal cell CA s/p right nephrectomy (2017) Nephrology consulted ZO secondary to toxic ATN / dehydration continue to monitor renal function Creatinine 2.11 -> 1.77 (02/23) ~near baseline IVF dc'd 02/22 Hypertension BPH Dementia confirm home meds, restart as appropriate VTE: lovenox Code: Full Dispo: Home, ~1-2 days Pending culture results / afebrile > 24 hours improved mentation
[2024-02-24] MEDS: POTASS/SODIUM PHOSPHATE 1 PKT POWD.PACK PO SCH (09:45)
--- NOTE | 2024-02-24 11:47 | PN ---
Date of Progress Note: 02/24/2024 Subjective: The patient was admitted with UTI with acute kidney injury and dehydration. The patient was started on IV hydration. Kidney function has been improved. Physical Examination: Vital Signs: Blood pressure 155/91, pulse of 89, afebrile. Chest: Clear to auscultation. Heart: S1, S2. Regular. Abdomen: Soft, nontender. Extremities: No edema. Neurologic: Alert. No focality. Laboratory Data: Hemoglobin 13.1. Sodium 140, potassium 4, bicarb 25, BUN 19, creatinine 1.7, calcium 9.3. Current Medications: The patient is on include Zosyn, Zofran, K-Phos. Assessment And Plan: 1. Acute kidney injury secondary to prerenal, toxic acute tubular necrosis, recovered, back to baseline, looked to me normal volume. 2. Hypertension, controlled, optimal. Continue current treatment. 3. Urinary tract infection. Follow up culture. Continue current antibiotic. 4. Hyponatremia, depletional, recovered, resolved. Time spent examining the patient [id number], reviewing data, lab and radiology, placing order, discussing the case with the patient, discussing the case with the steam tender including hospitalist and nursing staff with the dialysis nurse more than 35 minutes MANA Voice ID: [id number] Report ID: [id number] ROSA
--- NOTE | 2024-02-24 15:07 | EKG ---
Test Date: 2024-02-22 Test Time: 22:31:24 Sweatband Flanger: SOSA MEASUREMENT RESULTS: Intervals: Rate: 96 ME: 162 QRSD: 88 QT: 354 QTc: 447 [place]: P: 20 ME: 162 QRS: 4 T: 52 INTERPRETIVE STATEMENTS: Normal sinus rhythm Normal ECG Compared to ECG 10/16/2017 15:34:02 Sinus tachycardia no longer present Electronically Signed On 02-24-24 15:00:55 CDT by Ben Albarado
[2024-02-24] MEDS: TAMSULOSIN 0.4 MG SR CAP PO SCH (21:11)
[2024-02-25 01:00] VITALS: O2SAT 96
[2024-02-25 03:53] LABS: Anion Gap 6.8 mEq/L (5.0-15.0); Magnesium 2.2 mg/dL (1.6-2.4); Potassium 3.8 mEq/L (3.5-5.1)
[2024-02-25] MEDS: HYDRALAZINE HCL 20 MG/ML VIAL IV PRN (05:59)
[2024-02-25 08:42] VITALS: BP 160/87; TEMP 97.6
--- NOTE | 2024-02-25 09:28 | P.DS ---
Admission Date: 02/23/24 Discharge Date: 02/25/24 Reason for Admission: Pyelonephritis, acute renal failure Consultations: Nephrology - Dr. Barraza Brief History of Present Illness: 73yo M, PMH: dementia, hypertension, benign prostatic hypertrophy, Patient presents to ER via Unassigned with complaints of fever and AMS . Son was at bedside during ER evaluation with the ER staff. Son reported confusion at home today associated with fever and generalized weakness. Temperature measured by EMS 101.5. Patient on arrival not able to provide any significant ROS or HPI. It was reported by the family the patient has been feeling unwell for the last 2 days with reported progressive confusion. ER course or IV fluids, IV antibiotics, with nephrology to consult. ER course UA positive leukoesterase greater than 250, 1+ hematuria, 1+ bacteria, microcytic anemia 12.6 37.8,BUN 27 creatinine 2.8 estimated GFR 28 glucose 122,plan to admit admitted to inpatient sepsis without shock, acute renal failure, pyelonephritis, metabolic encephalopathy, elevated CO2 with nephrology to consult. Hospital Course: Problem List: Sepsis secondary to Acute cystitis with acute delirium; delirium improved ZO on CKD 3B; ~baseline renal cell CA s/p right nephrectomy (2018) Hypertension BPH Dementia Physician discharge instructions: Patient presented with fever, generalized weakness, acute delirium. CT abdomen with findings most consistent with acute cystitis. Urine culture grew E. coli. Blood cultures without growth since admission. Patient was given empiric antibiotics, IV fluids, and had improvement of his symptoms. Patient received empiric zosyn while hospitalized and is to complete 1 week of oral levaquin on discharge for total of ~10 days of antibiotic senait tment. Patient was feeling better, afebrile > 24 hours, confusion improved, and was deemed stable for discharge home. Patient able to ambulate and urinate without issues on day of discharge. Patient noted to have an ZO on admission with serum creatinine of 2.38 and quickly improved with IV fluids and creatinine returned to patients baseline. Nephrology was consulted. ZO deemed secondary to toxic ATN / dehydration. Creatinine on discharge 1.68. Advised to remain adequately hydrated at home. Resume losartan day after discharge. Medications: Levaquin for 1 week Resume home medications Follow up: PCP 3-5 days Nephrology in ~2-4weeks Please call to schedule / confirm appointments Physical Exam: GEN: Alert, orientedx3, NAD HEENT: Normal conjunctiva, sclera anicteric CV: Regular rate and rhythm, no edema Pulm: Nonlabored respirations on room air, clear bilaterally ABD: Soft, nontender, nondistended Neuro: Normal speech, normal affect Vital Signs/Physical Exam: Temp Pulse Resp BP Pulse Ox 97.6 F 84 18 160/87 H 99 02/25/24 08:00 02/25/24 08:00 02/25/24 08:00 02/25/24 08:00 02/25/24 08:00 Laboratory Data at Discharge: WBC 8.30 thou/uL (4.3-10.9) 02/24/24 03:19 Hgb 13.1 g/dL (13.6-17.9) L 02/24/24 03:19 Hct 39.3 % (39.6-49.0) L 02/24/24 03:19 Plt Count 346 thou/uL (152-406) 02/24/24 03:19 PT 16.0 SECONDS (9.5-12.5) H 02/22/24 22:48 INR 1.47 02/22/24 22:48 APTT 31.1 SECONDS (24.3-36.9) 02/22/24 22:48 Sodium 139 mEq/L (136-145) 02/25/24 02:57 Potassium 3.8 mEq/L (3.5-5.1) 02/25/24 02:57 BUN 18 mg/dL (7-18) 02/25/24 02:57 Creatinine 1.68 mg/dL (0.70-1.30) H 02/25/24 02:57 Glucose 82 mg/dL (74-106) 02/25/24 02:57 Phosphorus 2.0 mg/dL (2.5-4.9) L 02/24/24 03:19 Magnesium 2.2 mg/dL (1.6-2.4) 02/25/24 02:57 Total Bilirubin 0.6 mg/dL (0.2-1.0) 02/24/24 03:19 AST 14 U/L (15-37) L 02/24/24 03:19 ALT 26 U/L (16-61) 02/24/24 03:19 Alkaline Phosphatase 37 U/L (45-117) L 02/24/24 03:19 Home Medications: Amlodipine [Norvasc*] 10 mg PO DAILY 02/24/24 Donepezil HCl [Aricept] 10 mg PO DAILY 02/24/24 Finasteride [Proscar*] 5 mg PO DAILY 02/24/24 Losartan Potassium [Cozaar] 25 mg PO DAILY 02/24/24 Memantine HCl 5 mg PO DAILY 02/24/24 Solifenacin Succinate 10 mg PO DAILY 02/24/24 Tamsulosin [Flomax*] 0.8 mg PO DAILY 02/24/24 levoFLOXacin [Levaquin] 750 mg PO DAILY 7 Days #7 tab 02/25/24 New Medications: levoFLOXacin [Levaquin] 750 mg PO DAILY 7 Days #7 tab Physician Discharge Instructions: Physician discharge instructions: Patient presented with fever, generalized weakness, active delirium. CT abdomen with findings most consistent with acute cystitis. Urine culture grew E. coli. Blood cultures without growth since admission. Patient was given empiric antibiotics, IV fluids, and had improvement of her symptoms. Patient received empiric zosyn while hospitalized and is to complete 1 week of oral levaquin on discharge for total of ~10 days of antibiotic treatment. Patient was feeling better, afebrile > 24 hours, confusion improved, and was deemed stable for discharge home. Patient able to ambulate and urinate without issues on day of discharge. Patient noted to have an ZO on admission with serum creatinine of 2.38 and quickly improved with IV fluids and creatinine returned to patients baseline. Nephrology was consulted. ZO deemed secondary to toxic ATN / dehydration. Creatinine on discharge 1.68. Advised to remain adequately hydrated at home. Medications: Levaquin for 1 week Resume home antihypertensives Follow up: PCP 3-5 days Please call to schedule / confirm appointments Followup: Brittny Tavarez NP [Primary Care Provider] - 1-2 Weeks Time spent managing pt's care (in minutes): 45
[2024-02-25] MEDS: POTASSIUM CL SA 10 MEQ TAB PO ONE (09:37)
[2024-02-25] MEDS: levoFLOXacin 750 MG TAB PO ONE (09:38)
[2024-02-25] MEDS: AMLODIPINE 10 MG TAB PO ONE (09:38)
[2024-02-25] MEDS: FINASTERIDE 5 MG TAB PO SCH (09:38)
== END 2024-02-25 12:03 | disposition home or self-care (01) | DRG 871 ==
LOC: ER 22:25 → OBSVTOIN 02-23 03:14 → ERHOLD 02-23 03:14 → 2ND 02-23 16:00
PROVIDERS: ADMIT Hospitalist; ATTEND Hospitalist
PROC: 4A033R1 Measurement of Arterial Saturation, Peripheral, Percutaneous Approach (ICD-10-PCS; principal; 2024-02-23)
PROC: 0T9B70Z Drainage of Bladder with Drainage Device, Via Natural or Artificial Opening (ICD-10-PCS; 2024-02-25)
DX: A41.51 Sepsis due to Escherichia coli [E. coli] (principal); G93.41 Metabolic encephalopathy; N17.0 Acute kidney failure with tubular necrosis; N10 Acute pyelonephritis; F05 Delirium due to known physiological condition; E87.1 Hypo-osmolality and hyponatremia; I12.9 Hypertensive chronic kidney disease with stage 1 through stage 4 chronic kidney disease, or unspecified chronic kidney disease; N18.32 Chronic kidney disease, stage 3b; D63.1 Anemia in chronic kidney disease; D50.9 Iron deficiency anemia, unspecified; E86.0 Dehydration; F03.90 Unspecified dementia, unspecified severity, without behavioral disturbance, psychotic disturbance, mood disturbance, and anxiety; N40.1 Benign prostatic hyperplasia with lower urinary tract symptoms; R33.8 Other retention of urine; R31.9 Hematuria, unspecified; Z23 Encounter for immunization; Z90.5 Acquired absence of kidney; Z11.52 Encounter for screening for COVID-19; Z28.310 Unvaccinated for COVID-19; Z85.528 Personal history of other malignant neoplasm of kidney
CPT/HCPCS: 36415; 36600; 51702; 70450; 71045; 71250; 74176; 80048; 80053; 80307; 81001; 82077; 82805; 83605; 83735; 84100; 85025; 85610; 85730; 87040; 87077; 87086; 87088; 87186; 87804; 87811; 90471; 90732; 93005; 97116; 97161; 97530; 99285; J0360; J2405; J2543; J7030; J7040; J7120

== ENCOUNTER 2024-11-08 16:40 | Observation (INO) | payer MEDICARE ==
[2024-11-08] MEDS ORDERED: MORPHINE 2 MG/ML SYR IV PRN (18:21)
[2024-11-08] MEDS ORDERED: ONDANSETRON 4 MG/2 ML VIAL IV PRN (18:21)
[2024-11-08] MEDS ORDERED: ACETAMINOPHEN 500 MG TAB PO PRN (18:21)
[2024-11-08 18:47] LABS: Absolute Lymphocytes (CBC) 0.7 K/uL (0.7-4.9); Absolute Monocytes 0.6 K/uL (0.1-1.3); Absolute Neutrophil 3.7 K/uL (1.8-8.0); Basophils % 0.5 % (0-1.3); Eosinophils % 0.9 % (0-4.4); Hematocrit 49.2 % (39.6-49.0); Hemoglobin 16.1 g/dL (13.6-17.9); Lymphocytes % 14.1 % (15.3-44.8); MCH 30.5 pg (27.0-35.0); MCHC 32.8 g/dL (32.0-36.0); MPV 8.6 fL (7.6-11.3); Monocytes % 11.3 % (3.3-12.3); Neutrophils % 73.2 % (41.7-73.7); Nucleated Red Blood Cells % 0.2 % (0-0); Platelets 238 thou/uL (152-406); RBC Red Blood Cell Count 5.29 M/uL (4.33-5.43); Red Cell Distribution Width 13.9 % (12.1-15.2)
[2024-11-08 18:53] LABS: D-Dimer 1.141 FEUug/mL (0-0.500); PT Prothrombin Time 12.9 SECONDS (9.4-12.5); PTT, Activated Partial Thromb 29.4 SECONDS (24.3-36.9); Protime INR 1.23
[2024-11-08 18:58] LABS: Albumin 3.9 g/dL (3.4-5.0); Albumin/Globulin Ratio 0.9 (1.1-1.8); Anion Gap 9.2 mEq/L (5.0-15.0); Bilirubin Total 1.9 mg/dL (0.2-1.0); Globulin 4.3 g/dL (2.3-3.5); Potassium 4.2 mEq/L (3.5-5.1); Protein, Total 8.2 g/dL (6.4-8.2); Troponin High Sensitivity 47.6 pg/mL (<58.9)
--- NOTE | 2024-11-08 21:42 | RAD REPORT ---
EXAMINATION: ONE VIEW CHEST XR CLINICAL INDICATION: Male, 73 years old.,Shortness of breath TECHNIQUE: Frontal chest projection is submitted. Examination is limited by patient positioning and t echnique. COMPARISON: 02/22/2024 FINDINGS: The lungs are well inflated and clear. Elevation of the right hemidiaphragm again seen. No pneumothor ax or sizable effusion. The heart is normal in size. Mediastinal contours are unremarkable. IMPRESSION: No acute intrathoracic abnormalities.
--- NOTE | 2024-11-09 03:28 | P.HP ---
Certification for Inpatient Patient admitted to: Observation With expected LOS: <2 Midnights Patient will require the following post-hospital care: None Practitioner: I am a practitioner with admitting privileges, knowledge of patient current condition, hospital course, and medical plan of care. 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 He has also had a 30 lb weight loss. As patient was short of breath with just talking to the fish processing supervisor they wanted to directly admit the patient to the hospital for further evaluation. I spoke to t he patient he really does not feel like he short of breath. He says he has no difficulty ambulating. He has lost weight but he does not have much of an appetite. His weight loss is concerning especially at his age. Will do a CT imaging just to evaluate for malignancy. At this time patient will be admitted for further workup. D-dimer is pending as well as echocardiogram. Chest x-ray does not reveal any abnormality. EKG with sinus rhythm. Patient will be admitted for Observation. Allergies No Known Allergies Allergy (Unverified 10/17/17 04:18) Home Medications: Amlodipine [Norvasc*] 10 mg PO DAILY 02/24/24 Donepezil HCl [Aricept] 10 mg PO DAILY 02/24/24 Losartan Potassium [Cozaar] 25 mg PO DAILY 02/24/24 Memantine HCl 5 mg PO DAILY 02/24/24 Oxybutynin Chloride [Oxybutynin Chloride ER] 5 mg PO DAILY 11/08/24 - Past Medical/Surgical History Has patient received pneumonia vaccine in the past: No Diabetic: No -: BPH -: Hypertension -: Renal carcinoma -: Dementia -: Nephrectomy - Family History Father Family History: Reviewed- Non-Contributory - Social History Smoking Status: Never smoker Alcohol use: No CD- Drugs: No Caffeine use: No Place of Residence: Home Review of Systems 10-point ROS is otherwise unremarkable Physical Examination - Vital Signs Temperature: 98.1 F Blood Pressure: 155/101 Pulse: 98 Respirations: 16 Pulse Ox (%): 99 - Physical Exam General: Alert, In no apparent distress, Oriented x3 HEENT: Atraumatic, PERRLA, Mucous membr. moist/pink, EOMI, Sclerae nonicteric Neck: Supple, 2+ carotid pulse no bruit, No LAD, Without JVD or thyroid abnormality Respiratory: Clear to auscultation bilaterally, Normal air movement Cardiovascular: Regular rate/rhythm, Normal S1 S2, No murmurs Gastrointestinal: Normal bowel sounds, Soft and benign, Non-distended, No tenderness Musculoskeletal: No clubbing, No swelling, No tenderness Integumentary: No rashes Neurological: Normal gait, Normal speech, Normal strength at 5/5 x4 extr, Normal tone, Sensation intact, Cranial nerves 3-12 intact, Normal affect Lymphatics: No axilla or inguinal lymphadenopathy - Studies Laboratory Data (last 24 hrs) 11/08/24 11/08/24 11/08/24 18:30 18:30 18:30 WBC 5.10 Hgb 16.1 Hct 49.2 H Plt Count 238 PT 12.9 H INR 1.23 APTT 29.4 Sodium 141 Potassium 4.2 BUN 22 H Creatinine 2.08 H Glucose 88 Total Bilirubin 1.9 H AST 15 ALT 22 Alkaline Phosphatase 50 Assessment & Plan - Problems (Diagnosis) (1) Shortness of breath Current Visit: Yes Status: Acute (2) Weight loss Current Visit: Yes Status: Acute (3) History of renal cell carcinoma Current Visit: Yes Status: Acute (4) H/O right nephrectomy Current Visit: Yes Status: Acute (5) HTN (hypertension) Current Visit: Yes Status: Acute (6) Elevated d-dimer Current Visit: Yes Status: Acute - Plan Plan: 1. shortness of breath; patient had a chest x-ray that was unremarkable. Patient denies feeling short of breath. D-dimer is elevated so will get a V/Q scan. Will also get an echocardiogram to evaluate. 2. Weight loss; patient lost about 30 lb in last 3 months. Will get a CT scan to evaluate possible etiology 3. chronic kidney disease stage III; patient with history of renal cell carcinoma with right-sided nephrectomy; patient with a GFR of 33. plan to continue to monitor renal function closely. B 4. Gi DVT prophylaxis Discharge Plan: Home Plan to discharge in: 24 Hours - Advance Directives Does patient have a Living Will: No Does patient have a Durable POA for Healthcare: No - Code Status/Comfort Care Code Status Assessed: Yes Code Status: Full Code Critical Care: No Time Spent Managing PTS Care (In Minutes): 40
[2024-11-09] MEDS: NA CHLORIDE 0.9% 1,000 ML IV SCH (04:29)
[2024-11-09] MEDS: METOPROLOL TAR 25 MG TAB PO SCH (04:33)
[2024-11-09] MEDS: OXYBUTYNIN ER 5 MG TAB PO SCH (08:16)
[2024-11-09] MEDS: LOSARTAN POTASSIUM 50 MG TABLET PO SCH (08:17)
[2024-11-09] MEDS: AMLODIPINE 10 MG TAB PO SCH (08:17)
[2024-11-09] MEDS: DONEPEZIL HCL 5 MG TAB PO SCH (08:17)
[2024-11-09] MEDS: MEMANTINE HCL 10 MG TABLET PO SCH (08:17)
--- NOTE | 2024-11-09 08:51 | RAD REPORT ---
EXAM: CT CHEST, ABDOMEN AND PELVIS WITHOUT CONTRAST CLINICAL INDICATION: Shortness of breath, abdominal pain, weight loss TECHNIQUE: CT chest, abdomen an d pelvis was performed, without IV contrast, as per department protocol. Axial, sagittal and coronal reconstructions were obtained. One or more of the following dose reduction techniques were us ed: Automated exposure control, adjustment of the mA and/or kV according to the patient size, and/or iterative reconstruction. Unless otherwise specified, incidental findings do not require dedic ated imaging follow-up. The lack of IV and oral contrast limits evaluation of the mediastinum, samuel, vessels, organs and roddy l. COMPARISON: June 2024 FINDINGS: Subsegmental atelectasis right lower lobe. The left lung appears clear No mediastinal or hilar lymphadenopathy seen. No pleural effusion. No pericardial effusion. Right nephrectomy. No left hydronephrosis. Small left renal cyst. No calculus. Bladder wall appears t hickened. The bladder is poorly distended. Mild prostatic enlargement. Liver, spleen, pancreas and adrenals grossly No evidence of diverticulitis. Normal appendix IMPRESSION: Apparent mild bladder wall thickening could be secondary to inflammation or incomplete distention
[2024-11-09 10:19] LABS: Absolute Eosinophils 0.1 K/uL (0-0.5); Absolute Lymphocytes (CBC) 0.8 K/uL (0.7-4.9); Absolute Monocytes 0.6 K/uL (0.1-1.3); Absolute Neutrophil 4.1 K/uL (1.8-8.0); Basophils % 0.4 % (0-1.3); Eosinophils % 1.1 % (0-4.4); Hematocrit 44.3 % (39.6-49.0); Hemoglobin 14.4 g/dL (13.6-17.9); Lymphocytes % 14.8 % (15.3-44.8); MCH 30.2 pg (27.0-35.0); MCHC 32.5 g/dL (32.0-36.0); MCV 92.9 fL (80-100); MPV 8.2 fL (7.6-11.3); Monocytes % 10.7 % (3.3-12.3); Nucleated Red Blood Cells % 0.1 % (0-0); Platelets 251 thou/uL (152-406); RBC Red Blood Cell Count 4.77 M/uL (4.33-5.43); Red Cell Distribution Width 14.2 % (12.1-15.2)
[2024-11-09 10:46] LABS: ALT/SGPT 17 U/L (16-61); Albumin 3.4 g/dL (3.4-5.0); Albumin/Globulin Ratio 0.9 (1.1-1.8); Alkaline Phosphatase 41 U/L (45-117); Anion Gap 3.4 mEq/L (5.0-15.0); BUN Blood Urea Nitrogen 24 mg/dL (7-18); Bicarbonate 36 mEq/L (21-32); Bilirubin Total 1.9 mg/dL (0.2-1.0); Globulin 3.7 g/dL (2.3-3.5); Glomerular Filtration Rate 39 ml/min (=/>90); Glucose Level 95 mg/dL (74-106); Magnesium 2.3 mg/dL (1.6-2.4); NT PRO-BNP 110 pg/mL (<125); Potassium 4.4 mEq/L (3.5-5.1); Protein, Total 7.1 g/dL (6.4-8.2); Sodium Level 142 mEq/L (136-145)
[2024-11-09 10:54] LABS: AST/SGOT < 10 U/L (15-37); C-Reactive Protein < 2.90 mg/L (<3.00)
--- NOTE | 2024-11-09 13:28 | ECHO ---
HEIGHT: 0 ft 5.8 in WEIGHT: 195 lb 0 oz DATE OF STUDY: 11/09/[address]: Shima Adkins MD 2-DIMENSIONAL: YES M.MODE: YES DOPPLER: YES COLOR FLOW: YES TDS: PORTABLE: YES DEFINITY: BUBBLE STUDY: DIAGNOSIS: CONGESTIVE HEART FAILURE CARDIAC HISTORY: CATHERIZATION: NO SURGERY: NO PROSTHETIC VALVE: NO PACEMAKER: NO MEASUREMENTS (cm) DIASTOLIC (NORMALS) SYSTOLIC (NORMALS) IVSd 1.2 (0.6-1.2) LA Diam 2.1 (1.9-4.0) LVEF 55-60% LVIDd 4.5 (3.5-5.7) LVIDs 3.1 (2.0-3.5) %FS 30% LVPWd 1.3 (0.6-1.2) Ao Diam 2.9 (2.0-3.7) 2 DIMENSIONAL ASSESSMENT: RIGHT ATRIUM: NORMAL LEFT ATRIUM: NORMAL RIGHT VENTRICLE: NORMAL LEFT VENTRICLE: NORMAL TRICUSPID VALVE: TRACE TRICUSPID REGURGITATION MITRAL VALVE: NORMAL PULMONIC VALVE: NORMAL AORTIC VALVE: MILD TO MODERATE AORTIC REGURGITATION PERICARDIAL EFFUSION: NONE AORTIC ROOT: NORMAL LEFT VENTRICULAR WALL MOTION: NORMAL DOPPLER/COLOR FLOW: GRADE II DIASTOLIC DYSFUNCTION COMMENTS: 1. NORMAL LEFT VENTRICUALR SYSTOLIC FUNCTION, EJECTION FRACTION 55-60%, NORMAL WALL MOTION 2. GRADE II DIASTOLIC DYSFUNCTION 3. MILD TO MODERATE AORTIC REGURGITATION 4. INFERIOR VENA CAVA NOT VISUALIZED TECHNOLOGIST: MAUREEN HOLM
[2024-11-09 16:16] VITALS: O2SAT 97
--- NOTE | 2024-11-09 17:17 | RAD REPORT ---
EXAMINATION: NUCLEAR MEDICINE VENTILATION PERFUSION SCAN XENON CLINICAL INDICATION: Male, 73 years old. PE TECHNIQUE: Ventilation images after inhaled radiopharmaceutical obtained in multiple projections.. Pe rfusion images were dynamically obtained in multiple projections after intravenous injection of Tc-99m MAA. RADIOPHARMACEUTICALS: 15.9 mCi of Xenon-133 and 6.8 mCi intravenous Tc-99m MAA. COMPARISON: CT chest of the same day. Chest radiograph 11/08/2024. FINDINGS: VENTILATION: No focal ventilation defect. PERFUSION: Single wedge-shaped moderate defect along the posterior upper left lung, best appreciated on the LPO view. IMPRESSION: Low to Intermediate probability for pulmonary embolism by modified PIOPED II criteria.
[2024-11-09 17:28] VITALS: BMI 29.6
--- NOTE | 2024-11-09 17:31 | RAD REPORT ---
EXAM: CT Head Brain Wo Cont HISTORY: AMS/dementia COMPARISON: 02/23/2024 TECHNIQUE: Multiple contiguous axial images were obtained for a CT of the brain without contrast. Sag ittal and coronal reformats were performed. One or more of the following dose reduction techniques were used: Automated exposure control, adjus tment of the mA and kV according to patient size, and iterative reconstruction. Unless otherwise specified, incidental findings do not require dedicated imaging follow-up. FINDINGS: No evidence of hydrocephalus, intracranial hemorrhage, or extra-axial fluid collection. Focus of encephalomalacia involving the right putamen and centrum semiovale, stable. Moderate brain a trophy with confluent periventricular and deep white matter chronic microvascular ischemic changes present. The calvarium is intact. The visualized paranasal sinuses and mastoid air cells are essentially clear . IMPRESSION: No evidence of acute intracranial abnormality. Stable chronic findings as above.
--- NOTE | 2024-11-09 17:41 | CON ---
Date of Consultation: 11/09/2024 Reason For Consultation: Elevated BUN and creatinine. Fluid management. History Of Present Illness: This is a pleasant 73-year-old gentleman, well known to me from the [facility] with significant past medical history of chronic kidney disease, stage 3B, baseline creatinine 2; hypertension; hyperlipidemia; dementia; renal cell CA, status post nephrectomy. The patient came to my office yesterday and he had slurred speech. He had lost weight of 30 pounds since August. The patient denied any nausea, any vomiting, but he has significant decrease in his intake, loss of appet ite. The patient had significant shortness of breath. For that reason, patient was directed to be amee mireles to the ER. In the ER, chest x-ray was within normal limits. CT was negative for any malignancy . Kidney function stayed stable. The patient was started on hydration today, is feeling better. No sh ortness of breath. The patient is lying flat. Past Medical History: Includes: 1. Chronic kidney disease, stage 3B secondary to hypertension, nephrosclerosis, renal mass loss secon greg to nephrectomy. 2. Hypertension. 3. Hyperlipidemia. 4. Dementia. Past Surgical History: Include nephrectomy. Family History: Positive for hypertension. Social History: Denied smoking. Denied drinking. Denied drugs abuse. Review of Systems: Head and Neck: Lightheaded. GI: Has decreased intake. Has weight loss. No diarrhea. : No polyuria, no dysuria, no hematuria. TELESALES AGENT: Not applicable. Respiratory: Has shortness of breath. Cardiovascular: No chest pain. Endocrine: No polydipsia. Skin: No rash. Neuro: Has weakness. Has slurred speech. Musculoskeletal: Has fatigue. Physical Examination: Vital Signs: When I saw the patient, blood pressure 149/86, pulse of 79. Yesterday, blood pressure was down to 109, afebrile. Chest: Clear to auscultation. Heart: S1, S2. Regular. Abdomen: Soft, nontender. Extremities: No edema. Neuro: Alert. No focality. Still has slurred speech. Laboratory Data: WBC 5.6, hemoglobin 14.4. Sodium 142, potassium 4.4, bicarb 36, BUN 24, creatinine 1.8. GFR of 49. Calcium 10.1. Albumin 3.4. Current Medications: The patient is on IV fluid, losartan, amlodipine. CT chest, abdomen, and pelvi s is showing thickening of the bladder, right nephrectomy. No hydronephrosis on the left. Has a sma ll renal cyst. Bladder is distended. Assessment And Plan: 1. Chronic kidney disease, stage 3B secondary to renal mass loss, hypertension, nephrosclerosis, stab le on baseline. Look on the dry side. I agree with IV hydration. Hold diuresis. Continue current blood pressure medication. 2. Hypertension, controlled, optimal. Okay to continue ARB. Hold on any diuresis. 3. Weight loss, failure to thrive. I am going to go ahead and repeat UA and we will follow up with emma foy. 4. Renal carcinoma, status post nephrectomy, stable. 5. Renal cyst. We will follow up as outpatient. Thank you Dr. Adkins for allowing us to participate in the care of your patient and accepting this admi ssion. ANTONIO/BENJAMIN Voice ID: [id number] Report ID: [id number]
[2024-11-09 20:49] LABS: Sqamous Epithelial <5 /HPF (None Seen); Urine Bacteria None Seen /HPF (<20); Urine Bilirubin NEGATIVE (Negative); Urine Blood Negative (Negative); Urine Clarity Clear (Clear); Urine Color Yellow (Yellow); Urine Culture Reflex Order NOT NEEDED; Urine Glucose NEGATIVE (Negative); Urine Ketones TRACE (Negative); Urine Microscopic Reflex YN ORDER UMIC; Urine Mucus Slight /HPF (None Seen); Urine Nitrite NEGATIVE (Negative); Urine Protein TRACE (Negative); Urine RBC <5 /HPF (None Seen); Urine Urobilinogen Normal (Normal); Urine WBC <5 /HPF (<5); Urine WBC Clump Rare /HPF (None Seen)
[2024-11-09] MEDS ORDERED: ENSURE ENLIVE 237 ML CAN PO SCH (21:00)
[2024-11-09 22:49] VITALS: BP 158/88; TEMP 98.1
== END 2024-11-09 21:28 | disposition home or self-care (01) ==
LOC: INTOOBSV 16:40 → 4TH 16:40
PROVIDERS: ADMIT Hospitalist; ATTEND Hospitalist
DX: R06.02 Shortness of breath (principal); R79.1 Abnormal coagulation profile; R62.7 Adult failure to thrive; R63.4 Abnormal weight loss; N18.2 Chronic kidney disease, stage 2 (mild); E78.5 Hyperlipidemia, unspecified; F03.90 Unspecified dementia, unspecified severity, without behavioral disturbance, psychotic disturbance, mood disturbance, and anxiety; I10 Essential (primary) hypertension; Z85.528 Personal history of other malignant neoplasm of kidney; Z90.5 Acquired absence of kidney; Z68.29 Body mass index [BMI] 29.0-29.9, adult
CPT/HCPCS: 36415; 70450; 71045; 71250; 74176; 78582; 80053; 81001; 83735; 83880; 84439; 84443; 84484; 85025; 85379; 85610; 85730; 86140; 93306; A9540; A9558; G0378; G0379; J7030